=== PATIENT | female | born 1970 | race Caucasian/White ===

== ENCOUNTER 2017-10-21 16:53 | Emergency (ER) | END 2017-10-21 22:19 | disposition home or self-care (01) ==

== ENCOUNTER 2018-10-26 19:30 | Emergency (ER) | payer OTHER ==
[~2018-10-26] VITALS: Wt 52.1 kg
[~2018-10-26 19:30] MED LIST: ACYC800T PO; CEPH-443 PO; HYDR-3980 PO; IBUP-1542 PO
--- NOTE | 2018-10-27 00:49 | ERD ---
ER Documentation Chief Complaint Chief Complaint pain right rib cage area, states fell from stairs 3 days ago HPI This is a 48-year-old female who presents here in the emergency department with complaints of right rib pain. Stated that she fell on a 4 step stairs 3 days ago and landed on her right rib. Denies head injury, loss of consciousness. LMP: 6 months ago. A0. Denies headache, head injury, loss of consciousness, dizziness, neck pain, neck stiffness, throat pain, difficulty swallowing, difficulty breathing lying flat, shoulder pain, back pain, abdominal pain, nausea, vomiting, constipation, diarrhea, urinary symptoms, or possibility being , loss of bowel and bladder control, trauma, injury, falls, difficulty walking due to pain, numbness or tingling sensation, calf pain, recent travel, recent major surgery in the last 3 weeks, calf pain, recent long travel, recent exposure to any illness, recent antibiotic use in the last 3 months, fever, chills, seizures. Past medical history: Surgical history: x1. Social: Denies smoking, use of alcoholic beverages, use of illegal drugs. ROS All systems reviewed and are negative except as per history of present illness. Medications Home Meds Active Scripts Cyclobenzaprine Hcl* (Cyclobenzaprine Hcl*) 10 Mg Tablet, 10 MG PO TID PRN for MUSCLE SPASMS, #15 TAB Prov:PASILABAN,VITAAR F 10/27/18 Ibuprofen* (Motrin*) 600 Mg Tab, 600 MG PO Q6H PRN for PAIN AND OR ELEVATED TEMP, #30 TAB Prov:PASILABANVITAAR F 10/27/18 Cephalexin* (Keflex*) 500 Mg Capsule, 500 MG PO TID for 7 Days, CAP Prov:ANABELL,SOFI 10/21/17 Ibuprofen* (Motrin*) 600 Mg Tab, 600 MG PO Q6, #30 TAB Prov:ANABELL,SOFI 10/21/17 Hydrocodone/Acetaminophen ([place] 10-325 Tablet) 1 Each Tablet, 1 TAB PO Q6H PRN for PAIN, #20 TAB Prov:ANABELL,SOFI 10/21/17 Acyclovir* (Acyclovir*) 800 Mg Tablet, 800 MG PO 5 TIMES DAILY for 10 Days, #50 TAB Prov:ANABELL,SOFI 10/21/17 Allergies Allergies: Coded Allergies: Penicillins (Verified Allergy, Unknown, 10/26/18) PMhx/Soc Hx Miscellaneous Medical Probl: Yes (difficulty hearing in left ear) Physical Exam Vitals Physical Exam Const: No acute distress Head: Atraumatic. Normocephalic. Scalp is intact. No signs of direct injury to the head. Eyes: Normal Conjunctiva ENT: Normal External Ears, Nose and Mouth. Neck: Full range of motion. No meningismus. Resp: Clear to auscultation bilaterally. Examined with female deck officer. Chest area: Symmetrical chest. No vesicular lesions. No crepitus. Tenderness to the right side of the chest. Pain to range of motion to the right side. Cardio: Regular rate and rhythm, no murmurs Abd: Soft, non tender, non distended. Normal bowel sounds. No abdominal tenderness. Skin: No petechiae or rashes. No bruising. No discoloration. No vesicular lesions. Back: No midline or flank tenderness Ext: No cyanosis, or edema. C-spine/T-spine/L-spine are midline with good and full range of motion is no swelling/deformity/bulging/point of tenderness. Bilateral hips are stable and unremarkable. Bilateral upper and lower extremities are unremarkable. No saddle anesthesia. No neurovascular deficit. Ambulatory with steady gait. Neur: Awake and alert. No neurological deficit. Psych: Normal Mood and Affect Results 24 hrs Laboratory Tests Test 10/27/18 01:03 POC Beta HCG, Qualitative NEGATIVE Current Medications Medications Dose Sig/Alyse Start Time Status Last (Trade) Ordered Route PRN Stop Time Admin Dose Reason Admin Ketorolac 30 mg ONCE STAT 10/27/18 DC 10/27/18 Tromethamine IM 01:28 01:38 (Toradol) 10/27/18 01:29 Procedures/MDM Diagnostic tests: POC urine : Negative. Chest x-ray: No evidence for acute cardiopulmonary disease. Treatment: Toradol IM. Re-evaluation: Denies pain. No accessory muscle use in breathing. Lung sounds are clear to auscultation. Differential diagnosis I have low suspicion for pneumothorax, hemothorax, rib fractures,shingles, punctured lungs, liver laceration, spleen rupture, kidney laceration, C-spine fracture, concussion, skull fracture, subdural hematoma, epidural hematoma, compartment syndrome. Final diagnosis: Rib contusion. Prescription: Motrin. Flexeril. Follow-up with PCP in the next 24-48 hours. Come back here in the emergency department for any new symptoms or any worsening symptoms. All questions and concerns were answered. Patient and family members verbalized understanding and agreed with plan of care. Hemodynamically stable on discharge. Departure Diagnosis: Primary Impression: Rib contusion Condition: Stable Additional Instructions: Follow-up with PCP in the next 24-48 hours. Come back here in the emergency department for any new symptoms or any worsening symptoms. JENY ALFARO Oct 27, 2018 00:49
[2018-10-27] MEDS ORDERED: KETOROLAC 30 MG INJ IM STA (01:28)
[2018-10-27] MEDS ORDERED: IBUP-1542 PO (01:29)
[2018-10-27] MEDS ORDERED: CYCL10TA7 PO (01:29)
[2018-10-27 01:47] VITALS: BP 120/58; PULSE 79; RESP 19
== END 2018-10-27 01:49 | disposition home or self-care (01) ==
LOC: FTE 19:30
DX: S20.211A Contusion of right front wall of thorax, initial encounter (principal); W10.8XXA Fall (on) (from) other stairs and steps, initial encounter; Y92.9 Unspecified place or not applicable
CPT/HCPCS: 71046; 81025; 96372; J1885; Z7502